=== PATIENT | male | born 1985 | race American Indian/Alaskan Native ===

== ENCOUNTER 2017-01-14 15:55 | Emergency (ER) | payer OTHER, BC ==
[2017-01-14 16:02] VITALS: BP 138/86; PULSE 75; RESP 16; TEMP 98.4; O2SAT 100
--- NOTE | 2017-01-14 16:35 | ED PDOC ---
HPI: CCC, URI, Sore Throat Time Seen by Provider: 01/14/17 15:59 Chief Complaint (Nursing): Cough, Cold, Congestion Chief Complaint (Provider): Cough, Cold, Congestion History Per: Patient History/Exam Limitations: no limitations Have you had recent travel within the past 21 days to any of the following countries: [place], [place], [place] or [place]?: No Onset/Duration Of Symptoms: Days Current Symptoms Are (Timing): Still Present Location Of Pain: Throat, Sinus/es Sick Contacts (Context): Family Member(s) (Both Children are currently sick ) Associated Symptoms: Fever, Sore Throat, Cough, Nasal Congestion, Nausea Ear Symptoms: Bilateral: None Severity: Mild Additional Complaint(s): 31 y/o male patient presenting to the ED with a cold. 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 PT states he began sneezing, coughing with phlegm and feeling exhausted. He states that he took Robitussin last night and within 2-3 minutes of taking it he threw the medicine up. PT states as of today he is having less coughing, sneezing and congestion but the symptoms are still present. He also states he has two daughters who both are showing similar symptoms prior to when his began ; one daughter is having nausea and fever and the other daughter is coughing. He states he smokes occasionally and denies any prior medical conditions or allergies. Past Medical History Reviewed: Historical Data, Nursing Documentation, Vital Signs Vital Signs: Last Vital Signs Temp 98.4 F 01/14/17 15:59 Pulse 75 01/14/17 15:59 Resp 16 01/14/17 15:59 BP 138/86 01/14/17 15:59 Pulse Ox 100 01/14/17 16:49 - Medical History PMH: No Chronic Diseases - Surgical History Surgical History: No Surg Hx - Family History Family History: States: Unknown Family Hx - Social History Current smoker - smoking cessation education provided: Yes ("Occasionally") - Home Medications Home Medications: Ambulatory Orders Medication Instructions Recorded Methylprednisolone [Medrol Dose 4 mg PO DAILY #21 mg 01/14/17 Pack (21 tabs)] Promethazine HCl/Codeine 5 ml PO HS #80 ml 01/14/17 [Prometh-Codein 6.25-10 mg/5 ml] - Allergies Allergies/Adverse Reactions: Allergies Allergy/AdvReac Type Severity Reaction Status Date / Time No Known Allergies Allergy Verified 01/14/17 15:59 Review of Systems ROS Statement: Except As Marked, All Systems Reviewed And Found Negative Constitutional: Negative for: Fever ENT: Positive for: Nose Discharge, Nose Congestion, Throat Pain, Throat Swelling Cardiovascular: Negative for: Chest Pain Respiratory: Positive for: Cough. Negative for: Shortness of Breath, Wheezing Gastrointestinal: Positive for: Nausea, Vomiting. Negative for: Abdominal Pain , Diarrhea, Constipation Genitourinary Male: Negative for: Dysuria, Hematuria Physical Exam - Reviewed Nursing Documentation Reviewed: Yes Vital Signs Reviewed: Yes - Physical Exam Appears: Positive for: Non-toxic, No Acute Distress Head Exam: Positive for: ATRAUMATIC, NORMAL INSPECTION, NORMOCEPHALIC Skin: Positive for: Normal Color, Warm ENT: Positive for: Normal ENT Inspection Cardiovascular/Chest: Positive for: Regular Rate, Rhythm. Negative for: Murmur Respiratory: Positive for: Normal Breath Sounds. Negative for: Respiratory Distress Neurologic/Psych: Positive for: Alert, Oriented. Negative for: Motor/Sensory Deficits - ECG O2 Sat by Pulse Oximetry: 100 (RA) Pulse Ox Interpretation: Normal Disposition - Clinical Impression Clinical Impression: Upper respiratory infection - Patient ED Disposition Is Patient to be Admitted: No - Disposition Disposition: Routine/Home Disposition Time: 16:57 Condition: STABLE Prescriptions: Methylprednisolone [Medrol Dose Pack (21 tabs)] 4 mg PO DAILY #21 mg Promethazine HCl/Codeine [Prometh-Codein 6.25-10 mg/5 ml] 5 ml PO HS #80 ml Instructions: Upper Respiratory Infection (ED) Forms: [employer] ([place]), [facility] ED School/Work Excuse
== END 2017-01-14 16:58 | disposition home or self-care (01) ==
LOC: H.ER 15:55
DX: J06.9 Acute upper respiratory infection, unspecified (principal)